=== PATIENT | male | born 1990 | race Native Hawaiian/Other Pacific Islander ===

== ENCOUNTER 2019-02-01 16:37 | Inpatient (IN) | payer OTHER ==
[2019-02-01 17:47] LABS: HEMATOCRIT 46.6 % (42.0-52.0); HEMOGLOBIN 15.5 g/dl (13.5-17.5); MEAN CORPUSCULAR HEMOGLOBIN 28.9 pg (27.0-33.0); MEAN CORPUSCULAR HGB CONC 33.3 g/dl (32.0-36.5); MEAN CORPUSCULAR VOLUME 86.9 fl (80.0-96.0); PLATELET COUNT, AUTOMATED 244 10^3/uL (150-450); RED BLOOD COUNT 5.36 10^6/uL (4.30-6.10); WHITE BLOOD COUNT 9.1 10^3/uL (4.0-10.0)
[2019-02-01 18:02] LABS: AMPHETAMINES LEVEL URINE NEGATIVE (NEGATIVE); BARBITURATES URINE NEGATIVE (NEGATIVE); BENZODIAZEPINES URINE NEGATIVE (NEGATIVE); CANNABINOIDS URINE NEGATIVE (NEGATIVE); COCAINE METABOLITE URINE NEGATIVE (NEGATIVE); METHADONE URINE NEGATIVE (NEGATIVE); OPIATES URINE NEGATIVE (NEGATIVE); PHENCYCLIDINE URINE NEGATIVE (NEGATIVE)
[2019-02-01 18:17] LABS: ACETAMINOPHEN LEVEL < 2.0 UG/ML (10.0-30.0); ALBUMIN 4.2 GM/DL (3.2-5.2); ALT/SGPT 37 U/L (12-78); BILIRUBIN,DIRECT 0.1 MG/DL (0.0-0.2); BILIRUBIN,TOTAL 0.5 MG/DL (0.2-1.0); BLOOD UREA NITROGEN 13 MG/DL (7-18); CALCIUM LEVEL 9.4 MG/DL (8.5-10.1); CARBON DIOXIDE LEVEL 26 MEQ/L (21-32); CHLORIDE LEVEL 105 MEQ/L (98-107); CREATININE FOR GFR 0.86 MG/DL (0.70-1.30); ETHYL ALCOHOL (ETHANOL) < 0.003 % (0.000-0.010); GLOMERULAR FILTRATION RATE > 60.0 (>60); GLUCOSE, FASTING 92 MG/DL (70-100); POTASSIUM SERUM 3.7 MEQ/L (3.5-5.1); SALICYLATE LEVEL < 1.7 MG/DL (5.0-30.0); SODIUM LEVEL 138 MEQ/L (136-145); THYROID STIMULATING HORMONE 0.754 uIU/ML (0.358-3.740); TOTAL PROTEIN 7.7 GM/DL (6.4-8.2)
[2019-02-01] MEDS ORDERED: NYQUIL PO (19:27)
[2019-02-01] MEDS ORDERED: MAALOX 30 ML SUSP *UDC PO PRN (19:30)
[2019-02-01] MEDS ORDERED: MOM 30ML SUSPENSION UDC PO PRN (19:30)
[2019-02-01] MEDS ORDERED: ACETAMINOPHEN TAB 650MG DOSE (2X325MG) PO PRN (19:30)
[2019-02-01 22:55] VITALS: BP 143/90
[2019-02-01] MEDS: traZODone 50 MG TAB PO PRN (23:41)
[2019-02-01] MEDS: PALIPERIDONE 3 MG ER TAB (INVEGA) PO SCH (23:41)
[2019-02-02 06:27] VITALS: BP 130/77
[2019-02-02] MEDS: PALIPERIDONE 3 MG ER TAB (INVEGA) PO SCH ×2 (09:21→20:22)
--- NOTE | 2019-02-02 14:15 | MHHPEPDOC ---
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 When I met with the patient, he reports that he had these reported "hallucinations," however, when further queried he describes hallucinations that are primarily a negative internal monologue of him hearing himself, talking negatively to himself, but that it does not occur as an external phenomenon consistent with a psychotic symptom. The patient reports that he has had this for a significant amount of time and only notes that he has auditory hallucination when he is drinking consistent with alcoholic hallucinosis. The patient reports having some situational depressive symptoms when he is stressed out, but denies any significant anxiety symptoms, trauma symptoms or other at this time. Review Of Systems Depression: As above. Anxiety: The patient denies any excessive worry associated with physical symptoms. They deny any experience of discreet panic in the past. Carmen: The patient denies any episodes of euphoria/dysphoria associated with decreased need for sleep, hedonism, talkatively or impulsivity lasting longer than 5 days. Psychotic: The patient denies any experiences of auditory or visual hallucinations. They deny any episodes of paranoia or delusional thinking in the past Trauma: The patient denies any traumatic events associated with nightmares or intrusive thoughts. Borderline: The patient screens negative for borderline personality at this junction. Past Psychiatric History The patient reports no history of psychiatric admissions, medication trials or current follow up. Denies any suicide attempts. Allergies Please see below. Family Psychiatric History The patient denies/is unaware any history of mental health history including addictions and suicide. Social History The patient is a never man with no children who currently lives in the [facility] [place]. He is subsists on income with some college. He grew up with parents, . Denies any trauma or abuse growing up. Reports 3 brothers, 2 sisters grew up in [place]. Reports good support. He served in the for 2 years, has been deployed to [facility] with no combat experience. Substance Abuse History The patient reports drinking alcohol at times to blackout. Reports smoking tobacco intermittently. Reports in the past having problems with opioids prior to coming into the , but no use since. Denies stimulants or cocaine use in the past. Reports no major treatment and had "kicked a cold turkey." Medical History Patient has no significant past medical history. Mental Status Examination General: Well dressed with good hygiene Speech: Spontaneous and fluid Thought processes: Linear and logical MSK: Smooth and coordinated gait, no signs of tremors or involuntary orofacial movements Thought content: Future orientated Abstract reasoning, and computation: Intact Description of associations: Intact Description of abnormal or psychotic thoughts: Denies any suicidal or homicidal ideation. Denies any auditory or visual hallucinations. Does not appear to be responding to internal stimuli. Does not appear to be endorsing any bizarre or paranoid ideation. Judgment: fair Insight: fair Orientation: Alert and orientated 3 Cognition: Grossly normal Recent and remote memory: Intact Attention span and concentration: Intact Fund of knowledge: Adequate Mood: "okay" Affect: Euthymic with a full range Diagnoses Adjustment disorder with disruption in mood and conduct Alcohol use disorder, moderate Tobacco use disorder, moderate Opioid use disorder, in sustained remission Assessment and Plan The patient a 28-year-old man with reported auditory hallucinations, however, when further described they appear to be quite likely related to either alcoholic hallucinosis or to simply a very negative internal monologue, presents after reportedly being referred by [facility]. He does not demonstrate any psychotic phenomenon and his mental status is normal demonstrating no signs or symptoms of a psychotic process. He denies suicidal and homicidal ideations as well as since his presentation, he is friendly and amenable with no criteria available to hold him against his will. Collateral information reveals no significant signs of psychosis as well. He reports this is his first time going to [facility] and feels that his statements were taken out of context and this was a misunderstanding. He declines further voluntary admission and must be discharged in good demetrius tomorrow to [place]. I discussed with him a potential need for treatment of his alcohol use and referral information for our addiction clinic. Disposition Discharge tomorrow. Problem List 1. Risk for suicide. 2. Ineffective coping. Initial Treatment Plan 1. Patient was admitted on a 9.39 legal status. 2. Complete history was obtained. 3. With patients permission, family will be contacted and database will be expanded. 4. Patients medication regimen will be reviewed and changed accordingly. 5. Patient will be provided with protected environment. 6. Patient will be treated with individual, group, and milieu therapies. 7. Patient will receive supportive psych-education. 8. Discharge planning will commence immediately. 9. Outpatient follow-up treatment will be strongly recommended. 10. The initial treatment plan will focus initially on: Estimated Length Of Stay 3 days. Time Spent 80 minutes. Friday Vital Signs Vital Signs Date Time Temp Pulse Resp B/P (MAP) Pulse Ox O2 Delivery O2 Flow Rate FiO2 02/02/19 06:27 98.7 84 12 130/77 (94) Room Air 02/01/19 22:55 95 Laboratory Data 24H Labs Laboratory Tests 2 02/01/19 17:27: Nucleated Red Blood Cells % (auto) 0.0, Anion Gap 7L, Glomerular Filtration Rate > 60.0, Calcium Level 9.4, Total Bilirubin 0.5, Direct Bilirubin 0.1, Aspartate Amino Transf (AST/SGOT) 40H, Alanine Aminotransferase (ALT/SGPT) 37, Alkaline Phosphatase 58, Total Protein 7.7, Albumin 4.2, Albumin/Globulin Ratio 1.20, Thyroid Stimulating Hormone (TSH) 0.754, Salicylates Level < 1.7L, Acetaminophen Level < 2.0L, Ethyl Alcohol Level < 0.003 02/01/19 17:28: Urine Opiates Screen NEGATIVE, Urine Methadone Screen NEGATIVE, Urine Barbiturates Screen NEGATIVE, Urine Phencyclidine Screen NEGATIVE, Urine Amphetamines Screen NEGATIVE, Urine Benzodiazepines Screen NEGATIVE, Urine Cocaine Metabolite Screen NEGATIVE, Urine Cannabinoids Screen NEGATIVE CBC/BMP Laboratory Tests 02/01/19 17:27 Medications Scheduled Paliperidone (Paliperidone ER) 3 Mg Tab.er.24, 3 MG PO BID for BID Scheduled PRN [Nyquil] , 1 DOSE PO QHS PRN for SLEEP, (Reported) Allergies Coded Allergies: No Known Allergies (Unverified , 02/01/19) MAO ALMANZA DO Feb 02, 2019 14:15
--- NOTE | 2019-02-02 15:18 | HPEPDOC ---
General Date of Admission Feb 01, 2019 at 19:25 Date of Service: Feb 02, 2019 Chief Complaint The patient is a 28-year-old male admitted with a reason for visit of Unspecified Psychotic Disorder. 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 He admits that the voices have been bothering him a lot lately so he has been drinking heavily to stop them. He hears the voices more when he is alone. Says the voices have been going on for years. He denied any plans to act on the voices commands . He says that he has poor concentration and poor sleep. I am seeing the pateint here for medical history and physical Home Medications Scheduled PRN [Nyquil] , 1 DOSE PO QHS PRN for SLEEP, (Reported) Allergies Coded Allergies: No Known Allergies (Unverified , 02/01/19) Past Medical History Medical History none Surgical History appendectomy and tonsillectomy Family History Significant Family History: Cancer (Leukaemia in brother) Social History * Smoker: current smoker Alcohol: heavy (over the week ends , drinks beers 3 to 4 during the week days . Much more during the week ends. ) Drugs: denies, heroin (prior use 6 years ago snorting) A-FIB/CHADSVASC A-FIB History Current/History of A-Fib/PAF?: No Review of Systems Constitutional: Denies: Chills, Fever, Night Sweats Eyes: Denies: Pain, Vision change ENT: Denies: Head Aches, Ear Pain, Dysphagia Skin: Denies: Rash, Lesions, Breakdown Pulmonary: Denies: Dyspnea, Cough Cardiovascular: Denies: Chest Pain, Palpitations, Orthopnea, Paroxysmal Noc. Dyspnea, Lt Headedness Gastrointestinal: Denies: Nausea, Vomiting, Abdominal Pain, Diarrhea Genitourinary: Denies: Dysuria, Frequency, Incontinence, Retention Hematologic: Denies: Bruising, Bleeding Excessively Musculoskeletal: Denies: Neck Pain, Back Pain, Joint Pain, Muscle Pain, Spasms Psych: Reports: Mood Normal Physical Examination General Exam: Positive: Alert, Cooperative, No Acute Distress Eye Exam: Positive: PERRLA, Conjunctiva & lids normal, EOMI; Negative: Sclera icteric ENT Exam: Positive: Atraumatic, Mucous membr. moist/pink, Pharynx Normal Neck Exam: Positive: Supple; Negative: JVD, thyromegaly Chest Exam: Positive: Clear to auscultation, Normal air movement Heart Exam: Positive: Rate Normal, Regular Rhythm, Normal S1, Normal S2; Negative: Murmurs, Rubs Abdomen Exam: Positive: Normal bowel sounds, Soft; Negative: Tenderness, Hepatospenomegaly Skin Exam: Positive: Nl turgor and temperature; Negative: Breakdown, Lesion Neuro Exam: Positive: Normal Gait, Normal Speech, Cranial Nerves 3-12 NL, Reflexes 2+ Vital Signs Vital Signs Date Time Temp Pulse Resp B/P (MAP) Pulse Ox O2 Delivery O2 Flow Rate FiO2 02/02/19 06:27 98.7 84 12 130/77 (94) Room Air 02/01/19 22:55 95 Laboratory Data Labs 24H Laboratory Tests 2 02/01/19 17:27: Nucleated Red Blood Cells % (auto) 0.0, Anion Gap 7L, Glomerular Filtration Rate > 60.0, Calcium Level 9.4, Total Bilirubin 0.5, Direct Bilirubin 0.1, Aspartate Amino Transf (AST/SGOT) 40H, Alanine Aminotransferase (ALT/SGPT) 37, Alkaline Phosphatase 58, Total Protein 7.7, Albumin 4.2, Albumin/Globulin Ratio 1.20, Thyroid Stimulating Hormone (TSH) 0.754, Salicylates Level < 1.7L, Acetaminophen Level < 2.0L, Ethyl Alcohol Level < 0.003 02/01/19 17:28: Urine Opiates Screen NEGATIVE, Urine Methadone Screen NEGATIVE, Urine Barbiturates Screen NEGATIVE, Urine Phencyclidine Screen NEGATIVE, Urine Amphetamines Screen NEGATIVE, Urine Benzodiazepines Screen NEGATIVE, Urine Cocaine Metabolite Screen NEGATIVE, Urine Cannabinoids Screen NEGATIVE CBC/BMP Laboratory Tests 02/01/19 17:27 Assessment/Plan 28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 He admits that the voices have been bothering him a lot lately so he has been drinking heavily to stop them. He hears the voices more when he is alone. Says the voices have been going on for years. He denied any plans to act on the voices commands . He says that he has poor concentration and poor sleep. I am seeing the pateint here for medical history and physical . Psychiatric issues As per [facility] physician At present patient does not have any active medical problems. Plan / VTE VTE Prophylaxis Ordered?: No (freely ambulatory.) AYO REDDING MD Feb 02, 2019 15:18
[2019-02-02 16:28] VITALS: BP 140/83
[2019-02-02] MEDS: traZODone 50 MG TAB PO PRN (20:21)
[2019-02-03 07:02] VITALS: BP 142/79
[2019-02-03] MEDS ORDERED: PALI1TAB2 PO (08:52)
[2019-02-03] MEDS: PALIPERIDONE 3 MG ER TAB (INVEGA) PO SCH (09:04)
--- NOTE | 2019-02-03 10:10 | MHDSPDOC ---
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 When I met with the patient, he reports that he had these reported "hallucinations," however, when further queried he describes hallucinations that are primarily a negative internal monologue of him hearing himself, talking negatively to himself, but that it does not occur as an external phenomenon consistent with a psychotic symptom. The patient reports that he has had this for a significant amount of time and only notes that he has auditory hallucination when he is drinking consistent with alcoholic hallucinosis. The patient reports having some situational depressive symptoms when he is stressed out, but denies any significant anxiety symptoms, trauma symptoms or other at this time. Consultants Involved Hospitalist/PCP screening Treatment and Progress On The Unit The patient was admitted to the inpatient unit and precipitously started on Invega 3 mg BID, which did not appear to be a home medication. He was observed for 48 hours and at the end of the 48 hours appeared highly unlikely that he has psychotic thought process. History obtained as well as collateral information suggested that the patient has not demonstrated any concerning signs of psychosis other than reported internal monologue, of which the patient is able to describe quite clearly as more negative self-talk in my opinion. The patient was observed and demonstrated no concerning ideation, denied suicidal or homicidal ideation, and was confused as to why he was admitted. After discussion with the patient that the paliperidone would likely not be needed for a long period after his discharge, he stated that he did have problems with alcohol at times and should consider changing it. I hardly endorse that he see me at the addiction clinic. He, on the day of discharge, declined further voluntary admission, did not meet involuntary criteria as he had a normal mental status exam, was not impaired by any mental health process, and had been denying suicidal or homicidal ideation through his admission, cooperative with discharge and was pleasant and amenable, and thus was discharged in good demetrius. Discharge Assessment 28-year-old man with a history of addiction, likely an adjustment reaction which appears to have had negative self-talk misconstrued as psychotic thought process. He has no objective signs of a psychotic thought process and it is not clear why he was placed on Invega 3 mg BID. 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 He reports only having these experiences when he is drinking, of which is likely a phenomenon related to alcohol, and he demonstrates good insight into discussing how he should cease drinking. He would do well in our addiction program. Mental Status Examination General: Well dressed with good hygiene Speech: Spontaneous and fluid Thought processes: Linear and logical MSK: Smooth and coordinated gait, no signs of tremors or involuntary orofacial movements Thought content: Future orientated Abstract reasoning, and computation: Intact Description of associations: Intact Description of abnormal or psychotic thoughts: Denies any suicidal or homicidal ideation. Denies any auditory or visual hallucinations. Does not appear to be responding to internal stimuli. Does not appear to be endorsing any bizarre or paranoid ideation. Judgment: fair Insight: fair Orientation: Alert and orientated 3 Cognition: Grossly normal Recent and remote memory: Intact Attention span and concentration: Intact Fund of knowledge: Adequate Mood: "okay" Affect: Euthymic with a full range Follow Up The social work team worked during the predischarge meeting in order to evaluate for further issues of lethality address them fully before discharge. They worked on safety planning with the patient's family members in order to ensure that the patient will have a safe and effective discharge. Time Spent The amount of time spent in the coordination of care for this patient was approximately 60 minutes. Friday Vital Signs/I&Os Vital Signs Date Time Temp Pulse Resp B/P (MAP) Pulse Ox O2 Delivery O2 Flow Rate FiO2 02/03/19 07:02 99.2 93 16 142/79 (100) 02/02/19 06:27 Room Air 02/01/19 22:55 95 Medications Scheduled Paliperidone (Paliperidone ER) 3 Mg Tab.er.24, 3 MG PO BID for BID for 7 Days, #14 Scheduled PRN [Nyquil] , 1 DOSE PO QHS PRN for SLEEP, (Reported) Allergies Coded Allergies: No Known Allergies (Unverified , 02/01/19) MAO ALMANZA DO Feb 03, 2019 10:10
== END 2019-02-03 09:15 | disposition home or self-care (01) | DRG 882 ==
LOC: M ED 16:37 → M ED INP 19:25 → M PSY 22:50
PROVIDERS: ADMIT Psychiatry & Neurology Psychiatry; ATTEND Psychiatry & Neurology Addiction Medicine
DX: F43.25 Adjustment disorder with mixed disturbance of emotions and conduct (principal); F17.200 Nicotine dependence, unspecified, uncomplicated; F10.10 Alcohol abuse, uncomplicated; F11.21 Opioid dependence, in remission; Z79.899 Other long term (current) drug therapy

== ENCOUNTER 2020-03-29 06:41 | Day surgery (SDC) | payer OTHER ==
[~2020-03-29] VITALS: Ht 180.3 cm; Wt 104.3 kg
[~2020-03-29 06:41] MED LIST: NYQUIL PO; PALI1TAB2 PO
--- OUTSIDE RECORDS SUMMARY | 2020-03-29 06:46 | CCD ---
Author Author [facility] Organization [facility] Address Unknown Phone Unavailable Care Team Providers Care Overlocker Name Role Phone YARA CERNA MD Unavailable [phone] AYRA CERNA MD Unavailable [phone] YARA CERNA MD Unavailable [phone] YARA CERNA MD Unavailable [phone] YARA CERNA MD Unavailable [phone] YARA CERNA MD Unavailable [phone] YARA CERNA MD Unavailable [phone] YARA CERNA MD Unavailable [phone] YARA CERNA MD Unavailable [phone] YARA CERNA MD Unavailable [phone] YARA CERNA MD Unavailable [phone] YARA CERNA MD Unavailable [phone] YARA CERNA MD Unavailable [phone] YARA CERNA MD Unavailable [phone] YARA CERNA MD Unavailable [phone] YARA CERNA MD Unavailable [phone] YARA CERNA MD Unavailable [phone] YARA CERNA MD Unavailable [phone] YARA CERNA MD Unavailable [phone] YARA CERNA MD Unavailable [phone] BLACK, YARA CHRISTOPHER MD Unavailable [phone] BLACK, YARA LAMBERTER MD Unavailable [phone] BLACK, YARA JANE MD Unavailable [phone] BLACK, YARA LAMBERTER MD Unavailable [phone] BLACK, YARA KIMBLEOPHER MD Unavailable [phone] BLACK, YARA LAMBERTER MD Unavailable [phone] BLACK, YARA JANE MD Unavailable [phone] BLACK, YARA JANE MD Unavailable [phone] BLACK, YARA JANE MD Unavailable [phone] BLACK, YARA JANE MD Unavailable [phone] BLACK, YARA JANE MD Unavailable [phone] BLACK, YARA JANE MD Unavailable [phone] BLACK, YARA JANE MD Unavailable [phone] BLACK, YARA JANE MD Unavailable [phone] BLACK, YARA JANE MD Unavailable [phone] BLACK, YARA JANE MD Unavailable [phone] BLACK, YARA JANE MD Unavailable [phone] BLACK, YARA JANE MD Unavailable [phone] BLACK, YARA JANE MD Unavailable [phone] BLACK, YARA JANE MD Unavailable [phone] BLACK, YARA JANE MD Unavailable [phone] BLACK, YARA JANE MD Unavailable [phone] BLACK, YARA JANE MD Unavailable [phone] BLACK, YARA JANE MD Unavailable [phone] BLACK, YARA JANE MD Unavailable [phone] BLACK, YARA JANE MD Unavailable [phone] BLACK, YARA JANE MD Unavailable [phone] BLACK, YARA JANE MD Unavailable [phone] BLACK, YARA JANE MD Unavailable [phone] TURRIN, NICCI Unavailable Unavailable TURRIN, NICCI Unavailable Unavailable TURRIN, NICCI Unavailable Unavailable TURRIN, NICCI Unavailable Unavailable Re-disclosure Warning The records that you are about to access may contain information from federally-assisted alcohol or drug abuse programs. If such information is present, then the following federally mandated warning applies: This information has been disclosed to you from records protected by federal confidentiality rules (42 CFR part 2). The federal rules prohibit you from making any further disclosure of this information unless further disclosure is expressly permitted by the written consent of the person to whom it pertains or as otherwise permitted by 42 CFR part 2. A general authorization for the release of medical or other information is NOT sufficient for this purpose. The Federal rules restrict any use of the information to criminally investigate or prosecute any alcohol or drug abuse patient.The records that you are about to access may contain highly sensitive health information, the redisclosure of which is protected by Article 27-F of the [facility] Public Health law. If you continue you may have access to information: Regarding HIV / AIDS; Provided by facilities licensed or operated by the [facility] Office of Mental Health; or Provided by the [facility] Office for People With Developmental Disabilities. If such information is present, then the following [facility] mandated warning applies: This information has been disclosed to you from confidential records which are protected by state law. State law prohibits you from making any further disclosure of this information without the specific written consent of the person to whom it pertains, or as otherwise permitted by law. Any unauthorized further disclosure in violation of state law may result in a fine or snf sentence or both. A general authorization for the release of medical or other information is NOT sufficient authorization for further disc losure. Encounters Encounter Providers Location Date Indications Data Source(s ) Emergency Attender: NICCIKAYLA MAHONEY 2019 07:37:00 AM EST - 03/15/2019 09:08:00 AM [facility] Patient discharged. Emergency Attender: BUCK CERNA MD 1 04/23/2018 07:03:00 AM EST - 02/20/2019 10:02:00 AM [facility] Patient discharged. Insurance Providers Payer name Policy type / Coverage type Policy ID Covered libertarian ID Covered libertarian's relationship to inman Policy Inman Plan Information [facility] [employer] [id number] [facility] - O/P [id number] Problems, Conditions, and Diagnoses Code Display Name Description Problem Type Effective Dates Data Source(s) W65146 Unspecified place in unspeci fied non-institutional (private) residence as the place of occurrence of the external cause Unspecified place in unspecified non-institutional (private) residence as the place of occurrence of the external cause Diagnosis 03/15/2019 07:37:00 AM [facility] [id number] Contact with other sharp obj ect(s), not elsewhere classified, initial encounter Contact with other sharp object(s), not elsewhere classified, initial encounter Diagnosis 03/15/2019 07:37:00 AM [facility] [id number] Laceration without foreign body of right hand, initial encounter Laceration without foreign body of right hand, initial encounter Diagnosis 03/15/2019 07:37:00 AM [facility] Results ID Date Data Source [id number] 03/24/2020 09:34:00 AM [facility] Name Value Range Interpretation Code Description Data Maureen rce(s) Supporting Document(s) SARS coronavirus 2 RNA Not Detected [facility] This lab was ordered by [facility] and reported by [facility]. ID Date Data Source [id number] 03/15/2019 07:37:00 AM [facility] 1 Medication Reconciliation Report [facility] Emergency Department [address] [place] [address] Phone #: ext- [phone] 03/15/2019 07:28 Patient: MISAEL JANSEN Sex: M : 1990 Age: 29yWeight: 92.9 kgHeight/Length: 70 in.BMI: 29.4ALLERGIES: NoneThe patient's Home Medications are listed below:NONE.The source(s) of the original Home Medication information:Not obtained.The following Medications were given to the patient in the Emergency Department:None.The following Medications were prescribed to the patient:Augmentin 875 mg-125 mg tablet Take 1 tablet twice a day for 10 days -- Dispense 20 tablet. Refills: 0.Substitution permitted.Pharmacy - [facility] - [id number] ; [place] [address]. . -- Buck Caldwell P.A.-C Name Value Range Interpretation Code Description Data [facility](s) Supporting Document(s) ID Date Data Source [id number] 03/15/2019 07:37:00 AM [facility] 1 Medication Administration Record [facility] Emergency Department [address] [place] [address] Phone #: ext- [phone] 03/15/2019 07:28 Patient: MISAEL JANSEN Sex: M : 1990 Age: 29yWeight: 92.9 kgHeight/Length: 70 inBMI: 29.4ALLERGIES: NoneDate/Time Medication Administered Medication Ordered Name Value Range Interpretation Code Description Data [facility](s) Supporting Document(s) ID Date Data Source [id number] 03/15/2019 07:37:00 AM [facility] 1 General Instructions [facility] Emergency Department [address] [place] [address] Phone #: ext- [phone] 03/15/2019 07:28 Patient: MISAEL JANSEN Sex: M : 1990 Age: 29y Single superficial laceration to the right hand. No foreign body present.INSTRUCTIONS Protect wound and keep wound area clean. Limit use of your right hand for two weeks (No pushups or upper body. Limit use of hands.). No dietary restrictions. (Recommend to utilize OTC Motrin and Tylenol to control inflammation and pain management. Recommend to follow the instructions on the bottle and not to exceed.). Prescription Medications: Augmentin 875 mg-125 mg tablet Take 1 tablet twice a day for 10 days -- Dispense 20 tablet. Refills: 0. Substitution permitted. Pharmacy - [facility] - [address] ; [place] [address]. . Follow-up: Return to the emergency department as needed. Follow up with your healthcare provider in about two days if not better. Call for an appointment. Understanding of the discharge instructions verbalized by patient. ADDITIONAL INFORMATIONLaceration: All ClosuresA laceration is a cut through the skin. This will usually require stitches (sutures) or fransico if it is deep.Minor cuts may be treated with a surgical tape closure or skin glue. 2 General Instructions [facility] Emergency Department [address] [place] [address] Phone #: ext- [phone] 03/15/2019 07:28 Patient: MISAEL JANSEN Sex: Quentin : 1990 Age: 29yHome care Your healthcare provider may prescribe an antibiotic. This is to help prevent infection. Follow all instructions for taking this medicine. Take the medicine every day until it is gone or you are told to stop. You should not have any left over. The healthcare provider may prescribe medicines for pain. If no pain medicines were prescribed, you can use cicn-fwv-ebjqxcz pain medicines. Follow instructions for taking any pain medicines. (Note: If you have chronic liver or kidney disease, or ever had a stomach ulcer or gastrointestinal bleeding, talk with your doctor before using these medicines.) Follow the healthcare provider's instructions on how to care for the cut. Keep the wound clean and dry. Do not get the wound wet until you are told it is OK to do so. If the area gets wet, gently pat it dry with a clean cloth. Replace the wet bandage with a dry one. If a bandage was applied and it becomes wet or dirty, replace it. Otherwise, leave it in place for the first 24 hours. Caring for sutures or fransico: Once you no longer need to keep them dry, clean the wound daily. First, remove the bandage. Then wash the area gently with soap and warm water, or as directed by the healthcare provider. Use a wet cotton swab to loosen and remove any blood or crust that forms. After cleaning, apply a thin layer of antibiotic ointment if advised. Then put on a new bandage unless you are told not to. Caring for skin glue: Don't put apply liquid, ointment, or cream on the wound while the glue is 3 General Instructions [facility] Emergency Department [address] [place] [address] Phone #: ext- [phone] 03/15/2019 07:28 Patient: MISAEL JANSEN Sex: M : 1990 Age: [address] Avoid activities that cause heavy sweating. Protect the wound from sunlight. Do not scratch, rub, or pick at the adhesive film. Do not place tape directly over the film. The glue should peel off within 5 to 10 days. Caring for surgical tape: Keep the area dry. If it gets wet, blot it dry with a clean towel. Surgical tape usually falls off within 7 to 10 days. If it has not fallen off after 10 days, you can take it off yourself. Put mineral oil or petroleum jelly on a cotton ball and gently rub the tape until it is removed. Once you can get the wound wet, you may shower as usual but do not soak the wound in water (no tub baths or swimming) Even with proper treatment, a wound infection may sometimes occur. Check the wound daily for signs of infection listed below.Scalp woundsDuring the first 2 days, you may carefully rinse your hair in the shower to remove blood, glass or dirtparticles. After two days, you may shower and shampoo your hair normally. Do not soak your scalp inthe tub or go swimming until the stitches or fransico have been removed. Talk with your healthcareprovider before applying any antibiotic ointment to the wound.Mouth woundsEat soft foods to reduce pain. If the cut is inside of your mouth, clean by rinsing after each meal andat bedtime with a mixture of equal parts water and hydrogen peroxide (do not swallow!). Or, you canuse a cotton swab to directly apply hydrogen peroxide onto the cut. You may also be prescribed achlorhexidine solution to rise with. Mouth wounds can be painful when eating. You may use byiabd-ruo-qjvokxh local numbing solution for pain relief. If this is not available, you may use anynumbing solution intended for teething babies. You may apply this directly to the sores with acotton-tip swab or with your finger.Follow-up careFollow up with your healthcare provider as advised. Ask your healthcare provider how long suturesshould be left in place. Be sure to return for suture removal as directed. If dissolving stitches wereused in the mouth, these should fall out or dissolve without the need for removal. If tape closureswere used, remove them yourself when your provider recommends if they have not fallen off on theirown. If skin glue was used, the film will wear off by itself. Generally, you should keep healing woundsout of direct sunlight for the first couple of months to try to lessen scarring.When to seek medical adviceCall your healthcare provider right away if any of these occur: 4 General Instructions [facility] Emergency Department [address] [place] [address] Phone #: ext- [phone] 03/15/2019 07:28 Patient: MISAEL JANSEN Sex: M : 1990 Age: 29y Signs of infection, including increasing pain in the wound, increasing wound redness or swelling, or pus or bad odor coming from the wound Fever of 100.4F (38.C) or higher, or as directed by your healthcare provider Stitches or fransico come apart or fall out or surgical tape falls off before 7 days Wound edges reopen Wound changes colors Numbness around the wound after any numbing medicine should have worn off Decreased movement around the injured areaCall 911Call [phone] if you can't control the wound bleeding with direct pressure. 1999- 2017 [employer]. [address] [place] [address]. All rights reserved. This information is not intended as asubstitute for professional medical care. Always follow your healthcare professional's instructions.Extremity Laceration: Stitches, [place], or TapeA laceration is a cut through the skin. If it is deep, it may require stitches or fransico to close so it canheal. Minor cuts may be treated with surgical tape closures, or skin glue.X-rays may be done if something may have entered the skin through the cut. You may also need atetanus shot if you are not up to date on this vaccine.Home care Follow the healthcare provider's instructions on how to care for the cut. Wash your hands with soap and warm water before and after caring for your wound. This is to help prevent infection. Keep the wound clean and dry. If a bandage was applied and it becomes wet or dirty, replace it. Otherwise, leave it in place for the first 24 hours, then change it once a day or as directed. If stitches or fransico were used, clean the wound daily: o After removing the bandage, wash the area with soap and water. Use a wet cotton swab to loosen and remove any blood or crust that forms. o After cleaning, keep the wound clean and dry. Talk with your healthcare provider before putting any antibiotic ointment on the wound. Reapply the bandage. 5 General Instructions [facility] Emergency Department [address] [place] [address] Phone #: ext- [phone] 03/15/2019 07:28 Patient: MISAEL JANSEN Sex: M : 1990 Age: 29y You may remove the bandage to shower as usual after the first 24 hours, but don't soak the area in water (no swimming) until the stitches or fransico are removed. If surgical tape closures were used, keep the area clean and dry. If it becomes wet, blot it dry with a towel. Let the surgical tape fall off on its own. The healthcare provider may prescribe an antibiotic cream or ointment to prevent infection. He or she may also prescribe an antibiotic pill. Don't stop taking this medicine until you have finished it all or the provider tells you to stop. The provider may also prescribe medicine for pain. Follow the instructions for taking these medicines. Don't do activities that may reopen your wound.Follow-up careFollow up with your healthcare provider, or as advised. Most skin wounds heal within 10 days. But aninfection may sometimes occur even with proper treatment. Check the wound daily for the signs ofinfection listed below. Stitches and fransico should be removed within 7 to14 days. If surgical tapeclosures were used, you may remove them after 10 days if they have not fallen off by then.When to seek medical adviceCall your healthcare provider right away if any of these occur: Wound bleeding not controlled by direct pressure Signs of infection, including increasing pain in the wound, increasing wound redness or swelling, or pus or bad odor coming from the wound Fever of 100.4F (38C) or higher, or as directed by your healthcare provider Stitches or fransico come apart or fall out or surgical tape falls off before 7 days Wound edges reopen Wound changes colors Numbness occurs around the wound Decreased movement around the injured area [id number] [employer]. [address] [place] [address]. All rights reserved. This information is not intended as asubstitute for professional medical care. Always follow your healthcare professional's instructions.Infected Laceration, Not Stitched 6 General Instructions [facility] Em ergency Department [address] [place] [address] Phone #: ext- [phone] 03/15/2019 07:28 Patient: MISAEL JANSEN Sex: M : 1990 Age: 29yA laceration is a cut through the skin. The cut has become infected. Because of the infection, and theamount of time that has passed since injury, the wound cannot be closed. It will heal best if left openand cleaned daily. It will seal over by growing new tissue from the sides and the bottom of the wound.Antibiotics may be prescribed. You will probably have a scar after it has healed.Oral antibiotic medicine may be prescribed to treat the infection.Home care If antibiotics have been prescribed, take them exactly as directed. Don' t t stop taking them until they are gone or you are told to stop, even if you feel better. Follow the healthcare provider's instructions on how to care for the cut. Unless otherwise instructed, change the bandage twice a day for the first few days, until the drainage stops. Then change it once a day. Change the bandage if it becomes wet, stained with wound fluid, or dirty. Clean the wound daily: o After removing the bandage, gently wash the area with soap and water. Use a wet cotton swab to loosen and remove any blood or crust that forms. o After cleaning, apply a thin layer of mreh-qid-ilhcazz antibiotic ointment if advised. Reapply a fresh bandage. Follow the healthcare provider's instructions for keeping the wound dry. You may be given restrictions on showering or tub baths. If the bandage gets wet, remove it. Gently pat the wound dry with a clean cloth, then replace the wet bandage with a dry one. Don't scratch, rub, or pick at the area. Wash your hands with soap and warm water before and after cleaning the wound or changing the bandage.Follow-up careFollow up with your healthcare provider, or as advised. It is important to follow up to make sure theinfection is getting better.When to seek medical adviceCall your healthcare provider right away if any of these occur: Symptoms don't begin to improve or get worse 7 General Instructions [facility] Emergency Department [address] [place] [address] Phone #: ext- [phone] 03/15/2019 07:28 Patient: MISAEL JANSEN Sex: M : 1990 Age: 29y Red streaks spread from the wound Increase in pus coming from the wound Increase in pain Fever of 10 0.4F (38C) or higher, or as directed by your healthcare provider [phone] [employer]. [address] [place] [address]. All rights reserved. This information is not intended as asubstitute for professional medical care. Always follow your healthcare professional's instructions.Laceration: How to Minimize ScarringA laceration is a cut through one or more layers of the skin. Cuts heal as the edges of the cut growtogether and heal. After the cut heals, the skin may not look exactly the same. The darleen left behind iscalled a scar. Scars are a natural part of the healing process. They are hard to avoid. How much youmay scar depends on the depth of the cut, its location on your body, your age, and how your skinheals. Some people tend to heal with more scarring than others. Most scars fade and become lessnoticeable over time. You can take steps to help this process along.NOTE: Please inform the staff of your last tetanus shot and if your wound was caused by a brock ordirty object.What you can doThe tips below can help reduce scarring as your wound heals. Keep the wound clean. Unless you are told to keep the area dry, gently wash the area with mild soap and water. You don't need to use antibacterial soap. Keep the wound moist. Apply petroleum jelly to the wound to keep it moist and prevent a scab from forming. Scabs lengthen the time it takes a wound to heal. Cover the wound. Use a non-adhesive bandage or gauze pad with paper tape. Change the bandage daily or if it gets wet or dirty. Try hydrating or silicone gel sheets. These dressings keep the wound moist and may help it heal faster with less scarring. They may be useful for larger wounds, scrapes, sores, jiménez, or wounds with persistent redness. Ask your healthcare provider whether you should use this product on your wound. If you have stitches (sutures), follow your healthcare provider's instructions. Care for the wound as instructed. Also, return to have stitches removed on time. If you wait, scarring might be worse. Use sunscreen. Once the wound heals, apply sunscreen to the area daily. Sun may cause the 8 General Instructions [facility] Emergency Department [address] [place] [address] Phone #: ext- [phone] 03/15/2019 07:28 Patient: MISAEL JANSEN Sex: M : 1990 Age: 29y scar to be more visible and discolored. Once the wound heals, there is some evidence that efls-lzw-zaklpdg scar creams can reduce the appearance of a scar.Follow upMake a follow-up appointment as directed by our staff. If you are advised to see a specialist or youhave concerns about scarring, please contact a rn telehealth.When to seek medical adviceWhen to seek medical advice Call your health care provider right away if any of these occur: Shaking chills or fever above 100.4F (38C) Bleeding that soaks the dressing [place] fluid weeping from the wound Increased drainage from the wound or drainage that is yellow, yellow-green, or has a foul odor Increased swelling, pain, or redness in the skin around the w ound A change in the color or size of the wound Increased fatigue Loss of appetite Sutures pulling away from the wound or pulling apart 4410-0312 [employer]. [address] [place] [address], [place] [address]. All rights reserved. This information is not intended as asubstitute for professional medical care. Always follow your healthcare professional's instructions. You have been given the following additional information: Laceration: All Closures Laceration, Extremity: Stitches, Staple, or Tape Laceration, Infected, Not Stitched Laceration: How to Minimize Scarring Limit use of your right hand for two weeks (No pushups or upper body. Limit use of hands.). 9 General Instructions [facility] Emergency Department [address] [place] [address] Phone #: ext- [phone] 03/15/2019 07:28 Patient: MISAEL JANSEN Sex: M : 1990 Age: 29y(El ectronically signed by Buck Caldwell P.A.-C 03/15/2019 23:09) Name Value Range Interpretation Code Description Data Maureen rce(s) Supporting Document(s) ID Date Data Source [id number] 03/15/2019 07:37:00 AM EST [facility] 1 Clinical Report - Nurses [facility] Emergency Department [address] [place] [address] Phone #: ext- [phone] 03/15/2019 07:28 Patient: MISAEL JANSEN Sex: M : 1990 Age: 29yTRIAGEArrived by private vehicle. Historian: patient. Accompanied by friend. ( throwing away a tv and it brokeand split hand open, happened [place] was catching a flight back and did not have time to beseen).Acuity: LEVEL 4.Chief Complaint: INJURY TO RIGHT HAND.Alert.Occurred 23:00 03/13/2019. The patient sustained a laceration from a sharp edge.Pre- hospital notification of patient arrival was not received.Treatment PATIENT REGISTRATION REPRESENTATIVE:(hydrogen peroxide).SEPSIS SCREEN: Negative (no infection suspected/documented). --07:38 03/15/19 Yasmin Knott R.N.07:32 03/15/19. BP: 130/83. MAP: 98. HR: 68. RR: 18. O2 saturation: 99%. Temp: 97.5 F. Pain level now:0/10. --07:38 03/15/19 Yasmin Knott R.N.Weight: 92.9 kg stated. Height/Length: 70 inches Per Patient. BMI: 29.4. --07:32 03/15/19 Yasmin Knott R.N.MedicationsNone. --07:35 03/15/19 Yasmin Knott R.N.AllergiesNone. --07:34 03/15/19 Yasmin Knott R.N.PROBLEMS:no known problems.ADDITIONAL SURGERIES:Appendectomy.Tonsillectomy. --07:35 03/15/19 Yasmin Knott R.N.HistoryPAST MEDICAL HX: Tetanus status: up-to-date. Immunizations: up-to-date.SOCIAL HX: Light tobacco smoker- less than 1/2 a pack per day. Occasional alcohol use. No drug use.The patient was offered HIV testing but declined and hepatitis C testing but declined. The patient has nottraveled outside the [place] 2 Clinical Report - Nurses [facility] Emergency Department [address] [place] [address] Phone #: ext- [phone] 03/15/2019 07:28 [id number] Sex: M : 1990 Age: 29y Infectious disease exposure: No infectious disease exposure. Patient is not a known carrier of tuberculosis, hepatitis, HIV, MRSA or VRE. Patient is not a known carrier of CRE. SELF HARM ASSESSMENT: Self harm assessment was performed. The patient answered "no" to the question(s) "Do you have a plan for harming or killing yourself?" and "Have you recently had thoughts about harming or killing others?". ABUSE ASSESSMENT: Abuse assessment. Abuse denied. No suspicion of abuse. No report of abuse. NUTRITIONAL RISK ASSESSMENT: The nutritional risk assessment revealed no deficiencies. FUNCTIONAL ASSESSMENT: Functional assess ment: no impairments noted. LEARNING NEEDS ASSESSMENT: The learning needs assessment revealed no barriers. FALL RISK ASSESSMENT: Fall risk assessment completed. No risk factors identified. SKIN INTEGRITY ASSESSMENT: Skin integrity risk assessment completed. No skin integrity risk identified. --07:38 03/15/19 Yasmin Knott R.N. Interventions Identification band on patient. To treatment room. --07:38 03/15/19 Yasmin Knott R.N.PHYSICAL ASSESSMENTEXTREMITIES: Thenar eminence, right hand: laceration greater than 5.0 cm with controlled bleeding.Hypothenar eminence, right hand: tenderness and laceration greater than 5.0 cm with controlled bleeding.--07:38 03/15/19 Yasmin Knott R.N.NURSING PROGRESS NOTESReassurance given. Two patient identifiers checked. Call light placed in reach. Side rails up x 2. Bedplaced in lowest position. Brakes of bed on. Patient ready for evaluation- ED physician notified. --07:391 Yasmin Knott R.N. Wound cleansed with Hibiclens. --08:47 03/15/19 Yasmin Knott R.N.DISPOSITION / DISCHARGE 08:57 03/15/19. BP: 128/81. MAP: 96. HR: 79. RR: 16. O2 saturation: 98%. Temp: 98 F. --08:58 03/15/19 Vanessa Ibrahim ED, ER Tech1 Departure time: 09:08 03/15/2019. --10:17 03/15/19 Radha Angulo, BRENDA Condition at departure: stable. No learning barriers present. Discharge instructions provided and reviewed with the patient. Reviewed medication(s) side effects, precautions, dosing and course information. Prescription(s) sent electronically to pharmacy. Reviewed referral to a primary care 3 Clinical Report - Nurses [facility] Emergency Department [address] [place] [address] Phone #: ext- [phone] 03/15/2019 07:28 Patient: MISAEL JANSEN Sex: M : 1990 Age: 29y physician. Patient verbalized understanding. Written instructions provided in Icelandic. The patient was discharged by the physician acute care assistant. He was discharged home and accompanied by co worker. He left ambulatory and via private vehicle. Driving (co worker). --10:18 03/15/19 Radha Angulo, BRENDA 09:08 03/15/19. Pain level now: 0/10. --10:18 03/15/19 Radha Angulo, BRENDA.Locked/Released at 03/15/2019 10:18 by Radha Angulo RN Name Value Range Interpretation Code Description Data Maureen rce(s) Supporting Document(s) ID Date Data Source [id number] 03/15/2019 07:37:00 AM EST [facility] 1 Clinical Report - Physicians/Mid Levels [facility] Emergency Department [address] [place] [address] Phone #: ext- [phone] 03/15/2019 07:28 Patient: MISAEL JANSEN Sex: M : 1990 Age: 29y Time Seen: 08:37 03/15/2019; initial patient contact, initial documentation. Arrived- By private vehicle. Historian- patient.HISTORY OF PRESENT ILLNESS Chief Complaint: Injury to the right hand. The injury happened about 2 days ago. Occurred at home. The patient sustained a laceration. Patient is not experiencing pain. No injury to the head or neck or other injury. 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 Sts that he was throwing away a tv and it broke and split hand open. Sts that he was going to the airport to catching a flight back and did not have time to be seen. Sts he cleaned and went to [facility] to self treat. Seen by medic/sick call today and came to the ER. Not actviely bleeding.).REVIEW OF SYSTEMSThe patient sustained a laceration. No swelling, tingling, numbness, weakness or foreign body.PAST HISTORYSee nurses no luis. The patient's dominant hand is the right. Tetanus immunization status is up-to-date. Problems: Auditory hallucinations while trying to go to sleep. Alcohol Intoxication. Schizophrenia. Mental Illness. Additional Surgeries: Appendectomy. Tonsillectomy. Medications: None. Allergies: None.SOCIAL HISTORYNever smoker. No alcohol use or drug use.ADDITIONAL NOTESThe nursing notes have been reviewed. 2 Clinical Report - Physicians/Mid Levels [facility] Emergency Department [address] [place] [address] Phone #: ext- [phone] 03/15/2019 07:28 Patient: MISAEL JANSEN Sex: M : 1990 Age: 29yPHYSICAL EXAMVital Signs: 03/15/2019 07:32 BP: 130/83. MAP: 98. HR: 68. RR: 18. O2 saturation: 99%. Temp: 97.5 F.Pain level now: 0/10.Appearance: Alert. Oriented X3. No acute distress.Head: Head atraumatic.ENT: Voice normal.CVS: Normal heart rate and rhythm. No JVD present. Pulses normal. Capillary refill normal. Strongperipheral pulses. Heart sounds normal. Pulses: right radial 2+; left radial 2+.Respiratory: Chest normal on inspection. No respiratory distress. Unlabored respirations. Lungs clear.Good chest movement. Breath sounds normal and equal. Chest nontender.Skin: Skin warm and dry.Extremities: Right hand. No wrist injury. No hand injury. Hand and wrist exam otherwise negative.Extremities otherwise negative.Neuro, Vascular and Tendons: Vascular status intact. Sensation intact. Motor intact. Tendon functionintact. (AIN, PIN, R/U/M intact b/l UE. N/V intact. SILT. A/P FROM).Neuro: Awake. Alert. Mood/affect normal. Speech normal. No motor deficit. No sensory deficit.PROGRESS AND PROCEDURESLaceration Repair: Location: right hand. Length: 6.0cm. Complexity: simple (closed with tissueadhesive).Wound depth/shape- subcutaneous. Distal neuro/vascular/tendon status normal. Prepped withchlorhexidine. Wound cleansed and irrigated. Closure of superficial layer. Steri-strips used.Post-procedure: he is stable and there are no complications. Bleeding is controlled and neuro- vascularstatus is intact distal to the wound. Dressing applied. Tetanus immunization up-to-date. Course of Care: VSS, NAD, AOx3, interacting well and appropriately, no use of accessory muscle, able to speak full sentences, stable, non-toxic looking. Enter room and pt lying peacefully in bed in NAD. Patient stable. Denies any new issues, concerns, or complaints. PE paolaos NV itnact b/l UE. Noted superficial laceration to proximal palm of hand. Happend 2 days ago. Unable to suture. Will approxiamate with steristrip. Pt agree. Wound was cleansed and repaired. Pt tolerated procedure well. Enter room and patient lying peacefully in bed in NAD. Patient stable. Denies any new issues, concerns, or complaints. Discussed results with pt. Discussed tx plan with pt. Discussed and counseled on stable condition. Discussed importance of a f/u with PCP. Discussed return to ER criteria. Answered their questions. Indicates and verbalizes that they understand, agree, and will comply with above. Denies any new questions or concerns. Patient has capacity to understand. 3 Clinical Report - Physicians/Mid Levels [facility] Emergency Department [address] [place] [address] Phone #: ext- [phone] 03/15/2019 07:28 Patient: MISAEL JANSEN Sex: M : 1990 Age: 29y Discharge decision based on the following: patient's condition is stable; patient's exam is stable; social support is adequate; transportation is available; follow-up is available. Discussed of OTC Motrin and Tylenol to control inflammation and pain management. Informed to follow directions on reyna le that are appropriate for age and/or weight. Disposition: Discharged home in good and improved condition. Condition: good and stable.CLINICAL IMPRESSION Single superficial laceration to the right hand. No foreign body present.INSTRUCTIONS Protect wound and keep wound area clean. Limit use of your right hand for two weeks (No pushups or upper body. Limit use of hands.). No dietary restrictions. (Recommend to utilize OTC Motrin and Tylenol to control inflammation and pain management. Recommend to follow the instructions on the bottle and not to exceed.). Prescription Medications: Augmentin 875 mg-125 mg tablet Take 1 tablet twice a day for 10 days -- Dispense 20 tablet. Refills: 0. Substitution permitted. Pharmacy - [facility] - [id number] ; [place] [address]. . Follow-up: Return to the emergency department as needed. Follow up with your healthcare provider in about two days if not better. Call for an appointment. Understanding of the discharge instructions verbalized by patient.(Electronically signed by Buck Caldwell P.A.-C 03/15/2019 23:09) Name Value Range Interpretation Code Description Data Maureen rce(s) Supporting Document(s) ID Date Data Source [id number] 02/20/2019 07:03:00 AM EST [facility] 1 OrderSheet [facility] Emergency Department [address] [place] [address] Phone #: ext- [phone] 02/20/2019 07:03 Patient: MISAEL JANSEN Sex: M : 1990 Age: 28yWEIGHT:90.7 kg (S) HEIGHT:70 inches (S) BMI:28.7ALLERGIES: No Known Drug Allergy, Raw carrots give him a rashCHIEF COMPLAINT: agitatedDIAGNOSIS: Alcohol intoxicationLAB ORDERSOrder Description Priority Entered Acknowledged InitialedCBC w Diff STAT 08:00 02/20/2019 08:02 Radha Angulo Christopher RN M.D.;CMP STAT 08:00 02/20/2019 08:02 Radha Angulo Christopher RN M.D .;ETOH STAT 08:00 02/20/2019 08:02 Radha Angulo Christopher RN M.D.;Acetaminophen STAT 08:00 02/20/2019 08:02 Aury Angulo Christopher RN M.D.;Salicylate Level STAT 08:00 02/20/2019 08:02 Radha Angulo Christopher RN M.D.;Urinalysis (Clean STAT 08:00 02/20/2019 08:07 Sabrina Angulo Christopher RN M.D.;Urine Drug Screen STAT 08:00 02/20/2019 08:07 Radha Angulo Christopher RN M.D.;TSH STAT 08:00 02/20/2019 08:02 Radha Angulo Christopher RN M.D.;DIAGNOSTIC STUDY ORDERSOrder Description Priority Entered Acknowledged Initialed MEDICATION/IV/DRIP/FLUID ORDERSOrder Description Priority Entered Acknowledged InitialedAtivan PO 2 mg 08:00 02/20/2019 08:07 Radha Angulo 2 OrderSheet [facility] Emergency Department [address] [place] [address] Phone #: ext- [phone] 02/20/2019 07:03 Patient: MISAEL JANSEN Sex: M : 1990 Age: 28y(NOW) Buck Cerna RN, M.D.;GENERAL ORDERSOrder Description Priority Entered Acknowledged Initialed[Electronically signed by Radha Angulo RN (02/20/2019)][Electronically signed by Buck Cerna M.D. (12:09 02/20/2019)][Electronically locked by Radha Angulo RN (02/20/2019)] Name Value Range Interpretation Code Description Data Maureen rce(s) Supporting Document(s) ID Date Data Source [id number] 02/20/2019 07:03:00 AM EST [facility] 1 Medication Reconciliation Report [facility] Emergency Department [address] [place] [address] Phone #: ext- [phone] 02/20/2019 07:03 Patient: MISAEL JANSEN Sex: M : 1990 Age: 28yWeight: 90.7 kgHeight/Length: 70 in.BMI: 28.7ALLERGIES: No Known Drug Allergy, Raw carrots give him a rashThe patient's Home Medications are listed below:THE FOLLOWING MEDICATIONS NEED TO BE RECONCILED: Invega trinza 2 pills dailyThe source(s) of the original Home Medication i nformation:Not obtained.The following Medications were given to the patient in the Emergency Department:Ativan [PO] PO 2 mg, administered: 02/20/2019 8:07:00 AMThe following Medications were prescribed to the patient:None. Name Value Range Interpretation Code Description Data Maureen rce(s) Supporting Document(s) ID Date Data Source [id number] 02/20/2019 07:03:00 AM [facility] 1 Medication Administration Record [facility] Emergency Department [address] [place] [address] Phone #: mlm- [phone] 02/20/2019 07:03 Patient: MISAEL JANSEN Sex: M : 1990 Age: 28yWeight: 90.7 kgHeight/Length: 70 inBMI: 28.7ALLERGIES: Raw carrots give him a rash, No Known Drug Allergy Date/Time Medication Administered Medication OrderedGiven ATIVAN [PO] (LORAZEPAM) Ativan PO 2 mg (NOW)08:07 02/20/2019 Dose: 2 mg Tablets Radha Gutierrez RN Name Value Range Interpretation Code Description Data Maureen rce(s) Supporting Document(s) ID Date Data Source [id number] 02/20/2019 07:03:00 AM [facility] 1 General Instructions [facility] Emergency Department [address] [place] [address] Phone #: [phone] ext [phone] 02/20/2019 07:03 Patient: MISAEL JANSEN Sex: M : 1990 Age: 28yUncomplicated alcohol intoxication.INSTRUCTIONS(Follow up with psychiatry as planned.).Follow-up:Return to the emergency department if you are worried about harming yourself or others. ADDITIONAL INFORMATIONAlcohol IntoxicationAlcohol intoxication occurs when you drink alcohol faster than your liver can remove it from yoursystem. The following facts are important to remember: It can take 10 minutes or more to start to feel the effects of a drink, so you can easily get more intoxicated than you intended. One drink may be more than 1 serving of alcohol. Depending on the drink, it can be 2 to 4 servings. It takes about an hour for your body to metabolize (clear) 1 serving. If you have more than 1 drink, it can take a couple of hours or more. Many things affect how drinks will affect you, including whether you've eaten, how fast you drink, your size, how much you normally drink (or not), medicines you take, chronic diseases you have, and gender.Signs and symptoms of alcohol poisoningThe following are signs and symptoms of alcohol poisoning:Mild impairment Reduced inhibitions Slurred speech 2 General Instructions [facility] Emergency Department [address] [place] [address] Phone #: ext- [phone] 02/20/2019 07:03 Patient: MISAEL JANSEN Sex: M : 1990 Age: 28y Drowsiness Decreased fine motor skillsModerate impairment Erratic behavior, aggression, depression Impaired judgment Confusion Concentration difficulties Coordination problemsSevere impairment Vomiting Seizures Unconsciousness Cold, clammy Slow or irregular breathing Hypothermia (low body temperature) ComaHealth effectsAlcohol abuse causes health problems. Sometimes this can happen after only drinking a "little." Thereis no set number of drinks or amount of alcohol that defines too much. The more you drink at onetime, and the more frequently you drink determine both the short-term and long-term health effects. Itaffects all parts of your body and your health, including your: Brain. Alcohol is a central nervous system depressant. It can damage parts of the brain that affect your balance, memory, thinking, and emotions. It can cause memory loss, blackouts, depression, agitation, sleep cycle changes, and seizures. These changes may or may not be reversible. Heart and vascular system. Alcohol affects multiple areas. It can damage heart muscle causing cardiomyopathy, which is a weakening and stretching of the heart muscle. This can lead to trouble breathing, an irregular heartbeat, atrial fibrillation, leg swelling, and heart failure. It makes the blood vessels stiffen causing hypertension (high blood pressure). All of these 3 General Instructions [facility] Emergency Department [address] [place] [address] Phone #: ext- [phone] 02/20/2019 07:03 Patient: MISAEL JANSEN Sex: M : 1990 Age: 28y problems increase your risk of having heart attacks or strokes. Liver. Alcohol causes fat to build up in the liver, affecting its normal function. This increases the risk for hepatitis, leading to abdominal pain, appetite loss, jaundice, bleeding problems, liver fibrosis, and cirrhosis. This in turn can affect your ability to fight off infections, and can cause diabetes. The liver changes prevent it from removing toxins in your blood that can cause encephalopathy. Signs of this are confusion, altered level of consciousness, personality changes, memory loss, seizures, coma, and . Pancreas. Alcohol can cause inflammation of the pancreas, or pancreatitis. This can cause pain in your abdomen, fever, and diabetes. Immune system. Alcohol weakens your immune system in a number of ways. It suppresses your immune system making it harder to fight off infections and colds. You will also have a higher risk of certain infections like pneumonia and tuberculosis. Cancer risk. Alcohol raises your risk of cancer of the mouth, esophagus, pharynx, larynx, liver, and breast. Sexual function. Alcohol abuse can also lead to sexual problems.Alcohol use during may cause permanent damage to the growing baby.Home careThe following guidelines will help you care for yourself at home: Don't drink any more alcohol. Don't drive until all effects of the alcohol have worn off. Don't operate machinery that can cause injuries. Get lots of rest over the next few days. Drink plenty of water and other non- alcoholic liquids. Try to eat regular meals. If you have been drinking heavily on a daily basis, you may go through alcohol withdrawal. The usual symptoms last 3 to 4 days and may include nervousness, shakiness, nausea, sweating, sleeplessness, and can even cause seizures and a serious withdrawal symptom called delirium tremens, or DTs. During this time, it is best that you stay with family or friends who can help and support you. You can also admit yourself to a residential detox program. If your symptoms are severe (seizures, severe shakiness, confusion), contact your doctor or call an ambulance for help (see below).Follow-up care 4 General Instructions [facility] Emergency Department [address] [place] [address] Phone #: ext- [phone] 02/20/2019 07:03 Patient: MISAEL JANSEN Sex: M : 1990 Age: 28yIf alcohol is a problem in your life, these are some organizations that can help you: Alcoholics Anonymous offers support through a self-help fellowship. There are no dues or fees. See the Yellow Pages and call for time and place of meetings. Find AA online at www.aa.org. [employer] offers support to families of alcohol users. Contact 555-219-5028, or online at www.al-anorenetta.org. National [place] on Alcoholism and Drug Dependence can be reached at 780-682-3265, or online at www.ncadd.org. There are also inpatient and residential alcohol detox programs. Check the Internet or phonebook Yellow Pages under "Drug Abuse and Treatment Centers."Call 372Mnmi 206 if any of these occur: Trouble breathing or slow irregular breathing Chest pain Sudden weakness on one side of your body or sudden trouble speaking Heavy bleeding or vomiting blood Very drowsy or trouble awakening Fainting or loss of consciousness Rapid heart rate SeizureWhen to seek medical adviceCall your healthcare provider right away if any of these occur: Severe shakiness Fever of 100.4F (38C) or higher, or as directed by your healthcare provider Confusion or hi ucinations (seeing, hearing, or feeling things that are not there) Pain in your upper abdomen that gets worse Repeated vomiting 5 General Instructions [facility] Emergency Department [address] [place] [address] Phone #: ext- [phone] 02/20/2019 07:03 Patient: MISAEL JANSEN Sex: M : 1990 Age: 28y [phone] [employer]. [address] [place] [address]. All rights reserved. This information is not intended as asubstitute for professional medical care. Always follow your healthcare professional's instructions. You have been given the following additional information: Alcohol Intoxication(Electronically signed by Buck Cerna M.D. 02/20/2019 12:09) Name Value Range Interpretation Code Description Data Maureen rce(s) Supporting Document(s) ID Date Data Source [id number] 02/20/2019 07:03:00 AM EST [facility] 1 Clinical Report - Nurses [facility] Emergency Department [address] [place] [address] Phone #: ext- [phone] 02/20/2019 07:03 Patient: MISAEL JANSEN Sex: M : 1990 Age: 28yTRIAGEArrived by private vehicle. Historian: patient.Triage time: 07:10 02/20/2019.Chief Complaint: (Possible medication interaction).Onset. (3 hours ago). ( Reports that he is feeling "crazy" for the last 8 hrs. Had 4 beers last night. Deniesany intent for self harm.). --07:18 02/20/19 Nyasia Pinto R.N.Acuity: LEVEL 2.SEPSIS SCREEN: Negative (no infection suspected/documented). --07:28 02/20/19 Nyasia Pinto R.N.07:27 02/20/19. BP: 135/84. MAP: 101. HR: 92. RR: 18. O2 saturation: 99%. Temp: 98.4 F. Pain levelnow: 0/10. --07:28 02/20/19 Nyasia Pinto R.N.Weight: 90.7 kg stated. Height/Length: 70 inches Per Patient. BMI: 28.7. --07:09 02/20/19 Nyasia Matt R.N.MedicationsInvega trinza 2 pills daily. --07:21 02/20/19 Nyasia Pinto R.N.AllergiesNo Known Drug Allergy. --07:18 02/20/19 Nyasia Pinto R.N.Raw carrots give him a rash. --07:18 02/20/19 Nyasia Pinto R.N.PROBLEMS:Auditory hallucinations while trying to go to sleep.Schizophrenia. --07:22 02/20/19 Nyasia Pinto R.N.ADDITIONAL SURGERIES:Appendectomy.Tons illectomy. --07:22 02/20/19 Nyasia Pinto R.N.HistoryPAST MEDICAL HX: Schizophrenia (has been on his psychiatric medications for 3 weeks, started by [facility]). No history of self-injury or suicide attempt. No history of diabetes mellitus orhypertension. Immunizations: up-to-date.SOCIAL HX: Current some days light tobacco smoker- less than 1/2 a pack per day. Alcohol use. (on theweekends). No drug use. He was offered HIV testing but declined and hepatitis C testing but declined. 2 Clinical Report - Nurses [facility] Emergency Department [address] [place] [address] Phone #: ext- [phone] 02/20/2019 07:03 Patient: MISAEL JANSEN Sex: M : 1990 Age: 28y He has not traveled outside the [place] Infectious disease exposure: No infectious disease exposure. SELF HARM ASSESSMENT: Self harm assessment was performed. The patient answered "no" to the question(s) "Have you recently felt down, depressed, or hopeless?", "Do you have thoughts of harming or killing yourself?", "Do you have a plan for harming or killing yourself?", "Have you recently had thoughts about harming or killing others?", "Do you have any dangerous items in your possession?" and "Have you noticed less interest or pleasure in doing things?". The patient reports their behavior. (States that he feels like he wants to do a back flip off the ceiling.). ABUSE ASSESSMENT: No report of abuse. --07:27 02/20/19 Nyasia Pinto R.N. FALL RISK ASSESSMENT: Fall risk assessment completed. Risk factors identified include patient medications. Fall interventions initiated. Patient visible from nurses' station. Court Bailiff Or Sheriff at bedside. Call light in reach of patient. --07:29 02/20/19 Nyasia Pinot R.N.PHYSICAL [id number] 02/20/19. Ambulatory to room.GENERAL / NEURO / PSYCH: Alert. Oriented X 4. Appears in no acute distress. Speech within normallimits. Patient appears calm and cooperative. He appears to have altered thought processes, verbalizedas flights of ideas (feels like he could do flips). Appears restless. Good eye contact. Patient appearswell-nourished and neat and clean and smells of alcohol.RESPIRATORY: Respirations not labored.GI / : Abdomen soft and nontender. Bowel sounds within normal limits.SKIN: Skin intact. Skin is warm and dry. Skin color is within normal limits. --08:02 02/20/19 Radha Angulo, RN.NURSING PROGRESS NOTESPatient gowned. Reassurance given to the patient. Call light placed in reach. Bed placed in lowestposition. Brakes of bed on. --07:28 02/20/19 Nyasia Pinto R.N. 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 --07:40 02/20/19 Nyasia Pinto R.N. 07:45 02/20/19. ( Dr. Cerna aware of squad leaders statement. pt is antsy taking gown off and then back on, cooperative. Pt denies any thoughts of harming himself or anyone else at this time). --08:25 02/20/19 Radha Angulo, RN 08:07 02/20/2019 Ativan (LORazepam) PO Tablets 2 mg given. Allergies verified and confirmed 5 rights. Information reviewed with patient including sedative warning. Verbalizes understanding. --08:07 02/20/19 Radha Angulo, RN 08:22 02/20/19. ( coworkers have been at bedside since pt here. pt less anxious, is able to sit on stretcher for longer periods of time). --08:27 02/20/19 Radha Angulo, RN 3 Clinical Report - Nurses [facility] Emergency Department [address] [place] [address] Phone #: ext- [phone] 02/20/2019 07:03 Patient: MISAEL JANSEN Sex: M : 1990 Age: 28y 08:26 02/20/19. BP: 131/81. MAP: 97. HR: 95. RR: 19. O2 saturation: 96%. Pain level now: 0/10. --08:27 02/20/19 Radha Angulo RN ( pt sleeping, resp easy, coworkers at bedside, in site of nurses station). --08:45 02/20/19 Radha Angulo RN 06:45 02/20/19. BP: 129/86. MAP: 100. HR: 81. O2 saturation: 96% on nasal cannula at 2 liters/minute. --08:56 02/20/19 Clemente Hua RN Charted on wrong patient. --08:59 02/20/19 Clemente Hua RN 07:00 02/20/19. BP: 123/81. MAP: 95. HR: 82. O2 saturation: 96% on nasal cannula at 2 liters/minute. --08:57 02/20/19 Clemente Hua RN Charted on wrong patient. --09:01 02/20/19 Clemente Hua RN 07:57 02/20/19. BP: 126/79. MAP: 94. HR: 8. O2 saturation: 96% on nasal cannula at 2 liters/minute. --08:57 02/20/19 Clemente Hua RN Charted on wrong patient. --09:00 02/20/19 Clemente Hua RN 08:00 02/20/19. BP: 134/89. MAP: 104. HR: 80. O2 saturation: 95% on nasal cannula at 2 liters/minute. --08:58 02/20/19 Clemente Hua RN Charted on wrong patient. --09:00 02/20/19 Clemente Hua RN 08:30 02/20/19. BP: 122/76. MAP: 91. HR: 75. O2 saturation: 95% on nasal cannula at 2 liters/minute. --08:58 02/20/19 Clemente Hua RN Charted on wrong patient. --09:00 02/20/19 Clemente Hua RN.DISPOSITION / DISCHARGE 09:53 02/20/19. BP: 108/52. MAP: 70. HR: 87. RR: 16. O2 saturation: 94%. Temp: 97.1 F. --09:54 02/20/19 Vanessa Ibrahim ED, ER Tech1 09:56 02/20/19. Departure time: 10:01 02/20/2019. Condition at departure: improved and stable. The goals identified in the patient's plan of care were met. Fall risk assessment completed. Risk factors identified include patient impairment of mobility. No learning barriers present. Discharge instructions provided and reviewed with the patient and family. Reviewed warnings. Reviewed medication(s). Treatments reviewed. Reviewed referral to a psychiatrist. Patient and general worker verbalized understanding. Written instructions provided in Icelandic. The patient was discharged by the physician. He was discharged home and accompanied by general worker. He left ambulatory and via private vehicle. Court Bailiff Or Sheriff driving. --10:02/20/19 Cosme Zuñiga R.N. 10:01 02/20/19. Pain level now 0/10. --10:02/20/19 Cosme Zuñiga R.N.Locked/Released at 02/20/2019 10:18 by Radha Angulo RN 4 Clinical Report - Nurses [facility] Emergency Department [address] [place] [address] Phone #: kou- [phone] 02/20/2019 07:03 Patient: MISAEL JANSEN Sex: M : 1990 Age: 28y Name Value Range Interpretation Code Description Data Maureen rce(s) Supporting Document(s) ID Date Data Source [id number] 02/20/2019 07:03:00 AM EST [facility] 1 Clinical Report - Physicians/Mid Levels [facility] Emergency Department [address] [place] [address] Phone #: ext- [phone] 02/20/2019 07:03 Patient: MISAEL JANSEN Sex: M : 1990 Age: 28y Arrived- By private vehicle. Historian- patient and co-worker. Referred (coworkers).HISTORY OF PRESENT ILLNESS Chief Complaint: AGITATED. This started last night. The patient has exhibited a behavior change. (agitation and hyperactive). (Pt recently dx with schizophrenia, has been taking Invega for 3 weeks. Was drinking heavily last night and has been unable to calm down, mind and body are overactive. He denies suicidal and homidal thoughts.). Recent heavy alcohol consumption. Last drink was less than 12 hours ago. He is under influence in ED. Has not been sleeping. Has exhibited unusual behavior observed by co-workers (agitation/hyperactivity). No paranoia, suicidal thoughts or self- injury inflicted. He has had mild auditory hallucinations. The symptoms are described as moderate. No injury is present. Similar symptoms previously. Recent medical care: The patient was seen recently by a health care provider.REVIEW OF SYSTEMSNo headache, dizziness, weakness, chest pain or abdominal pain. No vomiting, diarrhea, black stools,numbness or fever. No sore throat, cough, difficulty breathing, urinary frequency or skin rash. Noenlarged lymph nodes, joint pain, weight loss or laceration. All other systems reviewed and are negative.PAST HISTORYSee nurses notes. Problems: Schizophrenia. Additional Surgeries: Appendectomy. Tonsillectomy. Medications: Invega trinza 2 pills daily. Allergies: No Known Drug Allergy. Raw carrots give him a rash. 2 Clinical Report - Physicians/Mid Levels [facility] Emergency Department [address] [place] [address] Phone #: ext- [phone] 02/20/2019 07:03 Patient: MISAEL JANSEN Sex: M : 1990 Age: 28ySOCIAL HISTORYLight tobacco smoker- less than 1/2 a pack per day. Occasional heavy alcohol use. No drug use. Is inthe . Has social support. Has place to stay.ADDITIONAL NOTESThe nursing notes have been reviewed.PHYSICAL EXAMVital Signs: 02/20/2019 08:26 BP: 131/81. MAP: 97. HR: 95. RR: 19. O2 saturation: 96%. Pain level now:0.02/20/2019 07:27 BP: 135/84. MAP: 101. HR: 92. RR: 18. O2 saturation: 99%. Temp: 98.4 F. Pain levelnow: .02/20/2019 06 :45 BP: 129/86. MAP: 100. HR: 81. O2 saturation: 96% on nasal cannula at 2 liters/minute.Have been reviewed.Appearance: Alert. No acute distress. Appearance is normal. He is restless and cooperative and hasnormal color. He is well hydrated, well nourished, well developed and well dressed. Appearance isconsistent with stated age.Eyes: Pupils equal, round and reactive to light.Neck: Normal inspection. Neck supple. No meningeal signs or lymphadenopathy.CVS: Normal heart rate and rhythm. Heart sounds normal. No cardiac murmur or extra heart sounds.Respiratory: No respiratory distress. Breath sounds normal. No rales, wheezes or rhonchi.Skin: Skin warm and dry. No rash.Extremities: Extremities exhibit normal ROM. No lower extremity edema.Psych / Neuro: Oriented X 3. Mood and affect normal. Speech normal. The patient exhibits alteredthought processes, verbalized as flights of ideas (expansive). Denies suicidal thoughts. Patient does notexpress homicidal thoughts. Insight and judgement normal. Cranial nerves normal (as tested). Nocerebellar findings. No motor deficit. No sensory deficit.LABS, X-RAYS, AND EKGLaboratory Tests: CBC w Diff: (KATY: 02/20/2019 08:09) ( MsgRcvd 02/20/2019 08:34) Final results Test Result Flag Units (Reference) CBC W/AUTOMATED DIFF COMPLETE BLOOD COUNT WBC 9.1 10/uL (4.2 - 11.0) RBC 5.62 10/uL (4.50 - 6.30) HEMOGLOBIN 15.8 g/dL (14.0 - 16.0) HEMATOCRIT 47.7 % (41.0 - 51.0) MCV 84.9 fL (80.0 - 94.0) MCH 28.1 pg (27.0 - 34.0) MCHC 33.1 g/dL (31.0 - 36.0) RDW 12.1 % (11.5 - 14.8) PLATELETS 335 10/uL (150 - 450) MPV 9.5 fL (7.4 - 10.4) NEUT 70.3 % (37.0 - 80.0) LYMPH 22.3 L % (25.0 - 40.0) MONO 5.6 % (3.0 - 8.0) EOS 0.8 % (0.0 - 7.0) BASO 0.4 % (0.0 - 2.0) 3 Clinical Report - Physicians/Mid Levels [facility] Emergency Department [address] [place] [address] Phone #: ext- [phone] 02/20/2019 07:03 Patient: MISAEL JANSEN Sex: M : 1990 Age: 28y %IG 0.6 H % (0.0 - 0.0) %NRBC 0.0 % (0.0 - 0.0) #NEUT 6.36 10/uL (2.00 - 6.90) #LYMPH 2.02 10/uL (0.60 - 3.40) #MONO 0.51 10/uL (0.00 - 0.90) #EOS 0.07 10/uL (0.00 - 0.70) #BASO 0.04 10/uL (0.00 - 0.20) #IG 0.05 10/uL (0.00 - 0.10) #NRBC 0.00 10/uL (0.00 - 0.00) MANUAL DIFF NOT INDICATED RBC MORPH NOT INDICATEDCMP: (KATY: 02/20/2019 08:09) ( MsgRcvd 02/20/2019 08:40) Final results Test Result Flag Units (Reference) COMPREHENSIVE METABOLIC PANEL COMPREHENSIVE METABOLIC PANEL SODIUM 143 mEq/L (134 - 153) POTASSIUM 4.8 mEq/L (3.6 - 5.0) CHLORIDE 102 mEq/L (98 - 107) CO2 26 MEQ/L (22 - 30) GLUCOSE 103 MG/DL (65 - 110) BUN 9 MG/DL (7 - 21) CREATININE 0.9 MG/DL (0.7 - 1.5) BUN/CREAT 10 (8 - 27) TOTAL PROTEIN 8.4 H G/DL (6.3 - 8.2) ALBUMIN 5.3 H G/DL (3.9 - 5.0) GLOBULIN 3.1 GM/DL (2.4 - 3.2) A/G RATIO 1.7 (0.8 - 2.0) CALCIUM 9.8 MG/DL (8.4 - 10.2) TOTAL BILI <0.7 MG/DL (0.2 - 1.3) ALKALINE PHOS 59 U/L (38 - 126) SGOT/AST 30 U/L (5 - 40) SGPT/ALT 19 U/L (7 - 56) ANION GAP 15.0 mmol/L (8.0 - 16.0) AGE 28 yrs NON-AA GFR >60 mL/min AFR AMER GFR >60 mL/min Male GFR Interprentation 20-49 yrs >60 mL/min Tppowt05-39 yrs >56 mL/min Normal 60-69 yrs >49 mL/min Normal 70-79yrs>42 mL/min Normal 80 and above >35 mL/min Normal Female GFRInterpretation 20-39 yrs >60 mL/min Normal 40-49 yrs >58 mL/minNormal 50-59 yrs >51 mL/min Normal 60-69 yrs >45 mL/min Pjujji99-93 yrs >39 mL/min Normal 80 and above >32 mL/min NormalETOH: (KATY: 02/20/2019 08:09) ( MsgRcvd 02/20/2019 08:40) Final results Test Result Flag Units (Reference) ALCOHOL 220.0 MG/DL ALCOHOL % 0.22 H % (0.00 - 0.01) *FOR MEDICAL PURPOSES ONLY*Acetaminophen Level: (KATY: 02/20/2019 08:09) ( MsgRcvd 02/20/2019 08:40) Final results Test Result Flag Units (Reference) ACETAMINOPHEN <15.0 UG/ML (0.0 - 30.0) H SERUM INDICES 9 (0 - 40) I SERUM INDICES 1 (0 - 8) L SERUM INDICES 7 (0 - 1300) Hemolysis causes a significant interference with the acetaminophen assay. Please refer the to followingfor the hemolysis index: Acetaminophen concentration Interference occurs with anrange: H index greater than: 15 to 30 mg/mL(99.9 to 199 mmol/L) 40 >30to 50 mg/mL(>199 to 331 mmol/L) 250 >50 mg/mL(>331 mmol/L) 500Salicylate Level: (KATY: 02/20/2019 08:09) ( MsgRcvd 02/20/2019 08:40) Final results 4 Clinical Report - Physicians/Mid Levels [facility] Emergency Department [address] [place] [address] Phone #: ext- [phone] 02/20/2019 07:03 Patient: MISAEL JANSEN Sex: M : 1990 Age: 28y Test Result Flag Units (Reference) SALICYLATE <0.3 L mg/dL (2.0 - 20.0) Urinalysis: (KATY: 02/20/2019 08:00) ( MsgRcvd 02/20/2019 09:41) Final results Test Result Flag Units (Reference) URINALYSIS URINALYSIS SOURCE Clean Catch COLOR yellow (NORMAL: Yello CLARITY clear (NORMAL: Clear SPEC GRAVITY 1.015 (1.001 - 1.030 pH 5 (5 - 9) GLUCOSE NORM (NORMAL: Negat BILIRUBIN NEG (NORMAL: Negat KETONE NEG (NORMAL: Negat PROTEIN NEG (NORMAL: Negat NITRITE NEG (NORMAL: Negat BLOOD NEG (NORMAL: Negat LEUK EST 25 (NORMAL: Negat UROBILINOGEN NOR (less than 1.0 MICROSCOPIC See Below WBC 0 - 1 (NORMAL: NONE RBC 0 - 1 (NORMAL: NONE EPITHELIAL FEW (NORMAL: NONE MUCOUS Trace (NORMAL: NONE Drug Screen-Urine: (KATY: 02/20/2019 08:00) ( [facility] 02/20/2019 09:34) Final results Test Result Flag Units (Reference) DRUG SCREEN URINE URINE DRUG SCREEN AMPHETAMINES NEGATIVE (NORMAL: NEGAT BARBITURATES NEGATIVE (NORMAL: NEGAT BENZO NEGATIVE (NORMAL: NEGAT COCAINE NEGATIVE (NORMAL: NEGAT THC NEGATIVE (NORMAL: NEGAT OPIATES NEGATIVE (NORMAL: NEGAT PCP NEGATIVE (NORMAL: NEGAT \\BLDo\\URINE DRUG SCREEN INTERPRETATION\\BLDx\\ THE CUTOFFF LEVELS FOR DETECTION ARE FOLLOWS: AMPHETAMINES 1000 ng/ml BARBITUARATES 200 ng/ml BENZODIAZEPINES 100 ng/ml THC 50 ng/ml PHENCYCLIDINE 25 ng/ml OPIATES 300 ng/ml COCAINE 300 ng/ml ALL POSITIVES ARE CONSIDERED PRESUMPTIVE POSITIVE CONFIRMATION WILL BE PERFORMED AT PHYSICIAN REQUEST. TSH: (KATY: 02/20/2019 08:09) ( [facility] 02/20/2019 09:04) Final results Test Result Flag Units (Reference) TSH 0.32 L uIU/mL (0.47 - 5.01).PROGRESS AND PROCEDURESCourse of Care: 09:43 02/20/19. Pt was given ativan and was able to sleep while awaiting results whichwere unremarkable except for alcohol level. Disposition: Discharged home in improved condition. Condition: good.CLINICAL IMPRESSION 5 Clinical Report - Physicians/Mid Levels [facility] Emergency Department [address] [place] [address] Phone #: ext- [phone] 02/20/2019 07:03 Patient: MISAEL JANSEN Sex: M : 1990 Age: 28y Uncomplicated alcohol intoxication.INSTRUCTIONS (Follow up with psychiatry as planned.). Follow-up: Return to the emergency department if you are worried about harming yourself or others.(Electronically signed by Buck Cerna M.D. 02/20/2019 12:09) Name Value Range Interpretation Code Description Data Maureen rce(s) Supporting Document(s) ID Date Data Source [id number] 02/20/2019 09:03:00 AM [facility] Name Value Range Interpretation Code Description Data Maureen rce(s) Supporting Document(s) Thyrotropin [Units/volume] in Serum or Plasma by Detec tion limit <= 0.05 mIU/L 0.32 uIU/mL 0.47 - 5.01 L [facility] ID Date Data Source [id number] 02/20/2019 08:40:00 AM [facility] Name Value Range Interpretation Code Description Data Maureen rce(s) Supporting Document(s) SALICYLATE <0.3 mg/dL 2.0 - 20.[address] [facility] pital ID Date Data Source [id number] 02/20/2019 08:40:00 AM [facility] Name Value Range Interpretation Code Description Data Maureen rce(s) Supporting Document(s) Acetaminophen [Presence] in Urine <15.0 UG/ML 0.0 - 30.0 [facility] H SERUM INDICES 9 0 - 40 [facility] I SERUM INDICES 1 0 - 8 [facility] L SERUM INDICES 7 0 - 1300 [facility] Hemolysis causes a significant interfe rence with the acetaminophen assay. Please refer the to following for the hemolysis index: Acetaminophen concentration Interference occurs with an range: H index greater than: 15 to 30 mg/mL(99.9 to 199 mmol/L) 40 >30 to 50 mg/mL(>199 to 331 mmol/L) 250 >50 mg/mL(>331 mmol/L) 500 ID Date Data Source [id number] 02/20/2019 08:40:00 AM [facility] Name Value Range Interpretation Code Description Data Maureen rce(s) Supporting Document(s) Ethanol [Moles/volume] in Blood 220.0 MG/DL [facility] ALCOHOL % 0.22 % 0.00 - 0.01 H [facility] ital *FOR MEDICAL PURPOSES ONLY * ID Date Data Source [id number] 02/20/2019 08:40:00 AM [facility] Name Value Range Interpretation Code Description Data Maureen rce(s) Supporting Document(s) COMPREHENSIVE METABOLIC PANEL [facility] COMPREHENSIVE METABOLIC PANEL Sodium [Moles/volume] in Serum or Plasma 143 mEq/L 134 - 153 [facility] Potassium [Moles/volume] in Serum or Plasma 4.8 mEq/L 3.6 - 5.0 [facility] Chloride [Moles/volume] in Serum or Plasma 102 mEq/L 98 - 107 [facility] Carbon dioxide, total [Moles/volume] in Serum or Plasma 26 MEQ/L 22 - 30 [facility] Glucose [Mass/volume] in Serum or Plasma 103 MG/DL 65 - 110 [facility] BUN 9 MG/DL 7 - 21 [facility] al Creatinine [Mass/volume] in Serum or Plasma 0.9 MG/DL 0.7 - 1.5 [facility] BUN/CREAT 10 8 - 27 [facility] al Protein [Mass/volume] in Serum or Plasma 8.4 G/DL 6.3 - 8.2 H [facility] Albumin [Mass/volume] in Serum or Plasma 5.3 G/DL 3.9 - 5.0 H [facility] Globulin [Mass/volume] in Serum by calculation 3.1 GM/DL 2.4 - 3.2 [facility] A/G RATIO 1.7 0.8 - 2.0 [facility] al Calcium [Mass/volume] in Serum or Plasma 9.8 MG/DL 8.4 - 10.2 [facility] Bilirubin.total [Mass/volume] in Serum or Plasma <0.7 MG/DL 0.2 - 1.3 [facility] Alkaline phosphatase [Enzymatic activity/volume] in Serum or Plasma 59 U/L 38 - 126 [facility] Aspartate aminotransferase [Enzymatic activity/volume] in Serum or Plasma 30 U/L 5 - 40 [facility] Alanine aminotransferase [Enzymatic activity/volume] in Seru m or Plasma 19 U/L 7 - 56 [facility] Anion gap 3 in Serum or Plasma 15.0 mmol/L 8.0 - 16.0 [facility] AGE 28 yrs [facility] NON-AA GFR >60 mL/min [facility] AFR AMER GFR >60 mL/min [facility] Male GFR In terprentation 20-49 yrs >60 mL/min Normal 50-59 yrs >56 mL/min Normal 60-69 yrs >49 mL/min Normal 70-79yrs >42 mL/min Normal 80 and above >35 mL/min Normal Female GFR Interpretation 20-39 yrs >60 mL/min Normal 40-49 yrs >58 mL/min Normal 50-59 yrs >51 mL/min Normal 60-69 yrs >45 mL/min Normal 70-79 yrs >39 mL/min Normal 80 and above >32 mL/min Normal ID Date Data Source [id number] 02/20/2019 08:33:00 AM EST [facility] Name Value Range Interpretation Code Description Data Maureen rce(s) Supporting Document(s) CBC W/AUTOMATED DIFF [facility] COMPLETE BLOOD COUNT Leukocytes [#/volume] in Blood by Automated count 9.1 10^3/uL 4.2 - 1 1.0 [facility] Erythrocytes [#/volume] in Blood by Automated count 5.62 10^6/uL 4. 50 - 6.30 [facility] Hemoglobin [Mass/volume] in Blood 15.8 g/dL 14.0 - 16.0 [facility] Hematocrit [Volume Fraction] of Blood by Automated count 47.7 % 4 1.0 - 51.0 [facility] Erythrocyte mean corpuscular volume [Entitic volume] by Auto mated count 84.9 fL 80.0 - 94.0 [facility] Erythrocyte mean corpuscular hemoglobin [Entitic mass] by Automated count 28.1 pg 27.0 - 34.0 [facility] Erythrocyte mean corpuscular hemoglobin concentration [Mass/volume] by Automated count 33.1 g/dL 31.0 - 36.0 [facility] Erythrocyte distribution width [Ratio] by Automated count 12.1 % 11.5 - 14.8 [facility] Platelets [#/volume] in Blood by Automated count 335 10^3/uL 150 - 45 0 [facility] Platelet mean volume [Entitic volume] in Blood by Automated count 9.5 fL 7.4 - 10.4 [facility] Neutrophils/100 leukocytes in Blood by Automated count 70.3 % 37. 0 - 80.0 [facility] Lymphocytes/100 leukocytes in Blood by Manual count 22.3 % 25.0 - 40.0 L [facility] Monocytes/100 leukocytes in Blood by Automated count 5.6 % 3.0 - 8.0 [facility] Eosinophils/100 leukocytes in Blood by Automated count 0.8 % 0.0 - 7.0 [facility] Basophils/100 leukocytes in Blood by Automated count 0.4 % 0.0 - 2.0 [facility] %IG 0.6 % 0.0 - 0.0 [facility] %NRBC 0.0 % 0.0 - 0.0 [facility] al Neutrophils [#/volume] in Blood by Automated count 6.36 10^3/uL 2.00 - 6.90 [facility] Lymphocytes [#/volume] in Blood by Automated count 2.02 10^3/uL 0.60 - 3.40 [facility] Monocytes [#/volume] in Blood by Automated count 0.51 10^3/uL 0.00 - 0.90 [facility] Eosinophils [#/volume] in Blood by Automated count 0.07 10^3/uL 0.00 - 0.70 [facility] Basophils [#/volume] in Blood by Automated count 0.04 10^3/uL 0.00 - 0.20 [facility] #IG 0.05 10^3/uL 0.00 - 0.10 [facility] #NRBC 0.00 10^3/uL 0.00 - 0.00 [facility] MANUAL DIFF NOT INDICATED [facility] RBC MORPH NOT INDICATED [facility] ID Date Data Source [id number] 02/20/2019 09:40:00 AM [facility] Name Value Range Interpretation Code Description Data Maureen rce(s) Supporting Document(s) URINALYSIS [facility] mike URINALYSIS SOURCE Clean Catch [facility] ital COLOR yellow NORMAL: Yellow [facility] CLARITY clear NORMAL: Clear [facility] Specific gravity of Urine by Test strip 1.015 1.001 - 1.030 [facility] pH 5 5 - 9 [facility] Glucose [Mass/volume] in Urine by Test strip NORM NORMAL: Negat [facility] Bilirubin.total [Presence] in Urine by Test strip NEG NORMAL: Negative [facility] Ketones [Presence] in Urine by Test strip NEG NORMAL: Negative [facility] Protein [Mass/volume] in Urine by Test strip NEG NORMAL: Negat [facility] Nitrite [Presence] in Urine by Test strip NEG NORMAL: Negative [facility] BLOOD NEG NORMAL: Negative [facility] Leukocyte esterase [Presence] in Urine by Test strip 25 ALFREDO L: Negative [facility] Urobilinogen [Mass/volume] in Urine by Test strip NOR less medhat n 1.0 mg/dL [facility] MICROSCOPIC See Below [facility] ital WBC 0 - 1 NORMAL: NONE SEEN [facility] Erythrocytes [#/volume] in Urine by Test strip 0 - 1 NORMAL: NON E SEEN [facility] EPITHELIAL FEW NORMAL: NONE SEEN [facility] Mucus [Presence] in Urine sediment by Light microscopy Trace NORMAL: NONE SEEN [facility] ID Date Data Source [id number] 02/20/2019 09:33:00 AM [facility] Name Value Range Interpretation Code Description Data Maureen rce(s) Supporting Document(s) DRUG SCREEN URINE [facility] URINE DRUG SCREEN Amphetamine [Presence] in Urine by Screen method NEGATIVE NORMAL: N EGATIVE [facility] BARBITURATES NEGATIVE NORMAL: NEGATIVE [facility] BENZO NEGATIVE NORMAL: NEGATIVE [facility] COCAINE NEGATIVE NORMAL: NEGATIVE [facility] Tetrahydrocannabinol [Presence] in Urine NEGATIVE NORMAL: NEGATIVE [facility] OPIATES NEGATIVE NORMAL: NEGATIVE [facility] Phencyclidine [Presence] in Urine by Screen method NEGATIVE NOR MAL: NEGATIVE [facility] \\BLDo\\URINE DRUG SCR EEN INTERPRETATION\\BLDx\\ THE CUTOFFF LEVELS FOR DETECTION ARE FOLLOWS: AMPHETAMINES 1000 ng/ml BARBITUARATES 200 ng/ml BENZODIAZEPINES 100 ng/ml THC 50 ng/ml PHENCYCLIDINE 25 ng/ml OPIATES 300 ng/ml COCAINE 300 ng/ml ALL POSITIVES ARE CONSIDERED PRESUMPTIVE POSITIVE CONFIRMATION WILL BE PERFORMED AT PHYSICIAN REQUEST. Procedure Vital Signs ID Date Data Source UNK Name Value Range Interpretation Code Description Data Source(s) Body surface area Derived from formula 2.20 m2 2.20 m2 [facility] ([facility]) Body weight 97.524 kg 97.524 kg [facility] ([facility]) [place] body weight 178 [lb_av] 178 [facility]lb_av[facility] Body mass index (BMI) [Ratio] 29.2 kg/m2 29.2 k g/m2 [facility] ([facility]) Body weight 215.00 [lb_av] 215.00 [lb_av] [facility] Body height 72 [in_i] 72 [in_i] [facility] ([facility]) 6'0"
--- OUTSIDE RECORDS SUMMARY | 2020-03-29 06:46 | CCD | Continuity of Care Document ---
Author Author Mario GOLDEN MD Organization Unknown Address [address] [place] [id number] Phone [phone] Care Team Providers Care Director Of Restaurants Name Role Phone Rachel Trejo Amrita AUTM [phone] Problems Description No Information Available Social History Type Date Description Comments Sex Unknown ETOH Use Denies alcohol use Tobacco Use Start: Unknown Non Smoker Recreational Drug Use Denies Drug Use Allergies, Adverse Reactions, Alerts Description No Known Drug Allergies Medications Description No Active Medications Immunizations Description No Information Available Vital Signs Date Vital Result Comment 03/15/2020 9:07am Height 72 inches 6'0" Weight 215.00 lb BMI (Body Mass Index) 29.2 kg/m2 [place] Body Weight 178 lb Weight 97.524 kg BSA (Body Surface Area) 2.20 m2 Results Description No Information Available Procedures Description No Information Available Medical Devices Description No Information Available Encounters Description No Information Available Assessments Description No Information Available Plan of Treatment No Information Available Functional Status Description No Information Available Mental Status Description No Information Available Referrals Refer to Reason for Referral Status Appt Date Aaron Golden M.D. deviated nasal septum offic e consult new or estab pt (1) 02/05/2020-08/03/2020 office /outpatient visit estab (3) 02/05/2020-02/04/2021 Created 03/15/2020 [facility] [address] [place] [id number] [phone]
[2020-03-29] MEDS ORDERED: fentaNYL 100 MCG/2 ML INJECTION (J3010) As Ordered ONE (07:01)
[2020-03-29] MEDS ORDERED: MIDAZOLAM INJ 2MG/2ML VIAL (J2250 PER 1MG) As Ordered ONE (07:01)
[2020-03-29] MEDS ORDERED: SUGAMMADEX SODIUM 500 MG/5 ML VIAL (BRIDION) As Ordered ONE (07:03)
[2020-03-29] MEDS ORDERED: propofoL 200 MG/20 ML VIAL As Ordered ONE (07:03)
[2020-03-29] MEDS ORDERED: dexameTHASONE 4 MG/ML 1ML VIAL (J1100 PER 1MG) As Ordered ONE (07:03)
[2020-03-29] MEDS ORDERED: ONDANSETRON 4MG/2ML VIAL As Ordered ONE (07:03)
[2020-03-29] MEDS ORDERED: ROCURONIUM BROMIDE 50 MG/5 ML VIAL As Ordered ONE (07:03)
[2020-03-29] MEDS ORDERED: LIDOCAINE 2% 100MG/5ML SDV (FOR ANES.) As Ordered ONE (07:03)
[2020-03-29] MEDS ORDERED: LIDOCAINE W/EPINEPHRINE 1% 20ML VIAL As Ordered ONE (08:29)
[2020-03-29] MEDS ORDERED: METHYLENE BLUE 0.5% (5MG/ML) 10 ML AMP (PROVAYBLUE) As Ordered ONE (08:29)
[2020-03-29] MEDS ORDERED: OXYMETAZOLINE 0.05% NASAL SPRAY (AFRIN) As Ordered ONE (08:40)
[2020-03-29] MEDS ORDERED: ACETAMINOPHEN 1000MG 100ML IV BTL (OFIRMEV) (J0131 PER 10MG) As Ordered ONE (09:12)
[2020-03-29] MEDS ORDERED: SODIUM CHLORIDE 0.9% NASAL GEL 15GM (AYR) As Ordered ONE (09:34)
[2020-03-29] MEDS ORDERED: fentaNYL 100 MCG/2 ML INJECTION (J3010) IV PRN (10:30)
[2020-03-29] MEDS ORDERED: IBUPROFEN 800 MG TAB PO PRN (10:30)
[2020-03-29] MEDS ORDERED: LR 1,000 ML IV SCH (10:30)
[2020-03-29] MEDS ORDERED: oxyCODONE 5MG TAB PO PRN (10:30)
[2020-03-29] MEDS ORDERED: ONDANSETRON 4MG/2ML VIAL IV PRN (10:30)
[2020-03-29] MEDS ORDERED: PERCOCET 5MG/325MG TAB PO PRN (10:30)
[2020-03-29 12:40] VITALS: BP 166/72
--- NOTE | 2020-04-03 15:31 | RO ---
OPERATIVE NOTE DATE OF OPERATION: 03/29/2020 PREOPERATIVE DIAGNOSIS: Deviated septum, chronic rhinitis. POSTOPERATIVE DIAGNOSIS: Deviated septum, chronic rhinitis. PROCEDURE: Septoplasty; partial reduction of inferior turbinates. SURGEON: Aaron Golden MD CHARGING PLUG PLACER: ANESTHESIA: INDICATIONS: 30-year-old with long history of nasal obstruction and congestion. DESCRIPTION OF PROCEDURE: After satisfactory general endotracheal anesthesia was administered the nose was prepared for surgery by placing cotton soaked pledgets with Afrin solution into the nasal cavity bilaterally. 1% Xylocaine with 1:100,000 Epinephrine was injected into the nasal septum and inferior turbinates. A Marky incision was made on the left side of the nose. A mucoperichondrial flap ad enveloped was created on the left side of the nasal septum and carried down to the junction of the bony and cartilaginous septum. This was then elevated and an enveloped was then created on the right side of the septum. Foman scissors was used to make a cut high in the perpendicular plate in the midportion of the vomer and a central segment of the bony septum was resected. Next, with the round knife on the Crow elevator, a strip of cartilage was resected from the floor of the nose, mobilizing the quadrilateral cartilage and creating a swinging door. Then, a central segment of cartilaginous septum was resected, preserving a 1 cm dorsal and caudal strut. Double-action rongeur was used to take down deflected portions of the perpendicular plate as well. Finally, the maxillary crest spur was taken down after elevating mucoperiosteum off both sides of it with a chisel. A segment of the resected cartilage was morselized and placed back into the septal envelope. The incision was closed using interrupted 5-0 chromic sutures. Then 4-0 plain suture was placed in a joor-eit-ykabs fashion through the two leaves of the mucoperichondrium to appose them. Next turbinate surgery was done. He had markedly hypertrophic turbinates. They were medially infractured and using the turbinate Coblator probe two parallel passes of the probed were made with 10 second coblation times for each of the set points on the probe. Finally, suction cautery was used to coagulate the posterior inferior tip of the inferior turbinate. A #15 blade was used to make an incision on the anterior tip of the inferior turbinate. [place] splints were placed in the nose and sew to the columella with 2-0 Prolene suture. The pharyngeal pack was removed and the throat suctioned. The patient was awakened, extubated and sent to recovery in satisfactory condition. He will be discharged home on Tylox for pain, Doxycycline 100 mg twice daily. He will be seen in the office in 48 hours.
== END 2020-03-29 12:50 | disposition home or self-care (01) ==
LOC: M SDC 06:41
PROVIDERS: ATTEND Specialist
DX: J34.2 Deviated nasal septum (principal); S02.2XXA Fracture of nasal bones, initial encounter for closed fracture; X58.XXXA Exposure to other specified factors, initial encounter; Y92.89 Other specified places as the place of occurrence of the external cause; Y93.9 Activity, unspecified; Y99.9 Unspecified external cause status; Z91.018 Allergy to other foods
CPT/HCPCS: 30140; 30520; 88300; J0131; J1100; J2250; J2405; J3010; Q9968